=== PATIENT | male | born 1960 | race Caucasian/White ===

== ENCOUNTER → 2017-10-06 | Outpatient (CLI) | payer BC ==
[~2017-10-06] MED LIST: APIX5TAB PO; FLEC150T PO; METO25TA35 PO
[2017-10-06 12:46] LABS: HEMATOCRIT 53.3 % (39.2-51.8); HEMOGLOBIN 17.9 g/dL (13.7-18.0); WHITE BLOOD COUNT 8.8 x10^3/uL (3.4-10)
[2017-10-06 13:23] LABS: ASPARTATE AMINO TRANSFERASE 23 U/L (15-37); BLOOD UREA NITROGEN 17 mg/dL (7-18)
== END | disposition home or self-care (01) ==
LOC: STAR 11:24
PROVIDERS: ATTEND Internal Medicine Cardiovascular Disease
DX: Z01.818 Encounter for other preprocedural examination (principal); I48.0 Paroxysmal atrial fibrillation
CPT/HCPCS: 36415; 80053; 85025

== ENCOUNTER 2017-10-11 08:49 | Observation (INO) | payer BC ==
[2017-10-06 12:51] VITALS: BP_SYST 100; BP_SYST 135; BP_DIAS 82; BP_DIAS 91
[~2017-10-11] VITALS: Ht 175.3 cm; Wt 104.1 kg
[~2017-10-11 08:49] MED LIST changes: -APIX5TAB PO; +SODIUM CHLORIDE 0.9% 1,000 ML IV SCH
[2017-10-11] MEDS ORDERED: PROTAMINE SULFATE 10 MG/ML, 5ML ONE (10:13)
[2017-10-11] MEDS ORDERED: HEPARIN 1,000 UNITS/ML, 10ML ONE (10:13)
[2017-10-11] MEDS ORDERED: MIDAZOLAM 1 MG/ML, 5ML ONE (10:37)
[2017-10-11] MEDS ORDERED: FENTANYL PF 250 MCG/5ML ONE ×2 (10:37→12:47)
[2017-10-11] MEDS ORDERED: ONDANSETRON 2MG/ML, 2ML ONE (10:51)
[2017-10-11] MEDS ORDERED: PROPOFOL 10 MG/ML, 20ML ONE (10:51)
[2017-10-11] MEDS ORDERED: DEXAMETHASONE 4 MG/ML, 1ML ONE (10:51)
[2017-10-11] MEDS ORDERED: ROCURONIUM 10MG/ML,5ML ONE (10:51)
[2017-10-11] MEDS ORDERED: SUCCINYLCHOLINE 20 MG/ML, 10ML ONE (10:51)
[2017-10-11] MEDS ORDERED: LIDOCAINE 2%, 20ML ONE ×2 (10:52→11:12)
[2017-10-11] MEDS ORDERED: LABETALOL 5MG/ML, 20ML IV PRN (13:30)
[2017-10-11] MEDS ORDERED: ACETAMINOPHEN 325 MG TABLET PO PRN ×2 (13:30)
[2017-10-11] MEDS ORDERED: PROMETHAZINE 25 MG/ML, 1ML IV PRN (13:30)
[2017-10-11] MEDS ORDERED: METOPROLOL TARTRATE 25 MG TABLET PO PRN (13:30)
[2017-10-11] MEDS ORDERED: ONDANSETRON 2MG/ML, 2ML IVPush PRN (13:30)
[2017-10-11] MEDS ORDERED: HYDROmorphone 1 MG/ML, 1ML IV PRN (13:30)
[2017-10-11] MEDS ORDERED: OXYcodone 5 MG/5 ML ORAL.SOL UDC PO PRN (13:30)
[2017-10-11] MEDS ORDERED: FENTANYL PF 100 MCG/2ML IV PRN (13:30)
[2017-10-11] MEDS ORDERED: EPHEDRINE 50 MG/ML, 1ML IVPush PRN (13:30)
[2017-10-11] MEDS ORDERED: ZOLPIDEM 5MG TABLET PO PRN (13:30)
[2017-10-11] MEDS ORDERED: MIDAZOLAM 1 MG/ML, 2ML IV PRN (13:30)
[2017-10-11] MEDS ORDERED: FLECAINIDE 100MG TABLET ONE (14:45)
[2017-10-11] MEDS: FLECAINIDE 100MG TABLET PO SCH (18:07)
[2017-10-11 19:28] VITALS: BP 106/64
[2017-10-11] MEDS: APIXABAN 5 MG TABLET PO SCH (21:01)
[2017-10-12 03:17] VITALS: BP 111/68
[2017-10-12] MEDS: APIXABAN 5 MG TABLET PO SCH (08:20)
[2017-10-12] MEDS: FLECAINIDE 100MG TABLET PO SCH (08:21)
[2017-10-12 09:39] VITALS: BP 105/57
[2017-10-12] MEDS ORDERED: APIX5TAB PO (09:41)
[2017-10-12] MEDS ORDERED: FLEC150T PO (09:41)
== END 2017-10-12 11:00 | disposition home or self-care (01) ==
LOC: CACL 08:49 → ORIP 13:02 → 5SO 14:37 → DCLOUNGE 10-12 10:44
PROVIDERS: ADMIT Internal Medicine Cardiovascular Disease; ATTEND Internal Medicine Cardiovascular Disease
DX: I48.0 Paroxysmal atrial fibrillation (principal); I10 Essential (primary) hypertension; E66.9 Obesity, unspecified; Z72.0 Tobacco use
CPT/HCPCS: 85347; 93306; 93312; 93321; 93325; 93613; 93656; 93662; C1730; C1732; C1759; C1766; C1893; C1894; G0378; J0330; J1100; J1644; J2250; J2405; J2704; J2720; J3010; J3490